=== PATIENT | female | born 1985 | race Hispanic/Latino ===

== ENCOUNTER 2017-01-02 12:22 | Emergency (ER) | payer MEDICAID ==
[~2017-01-02] VITALS: Ht 165.1 cm; Wt 100.0 kg
[~2017-01-02 12:22] MED LIST: AMOXICILLIN875 MG PO; CLINICAL NUTRIENTS P PO; GENTASOL0.3 % OS; HYDROXYZ HCL25 MG PO; NO; NO MEDS; SOLU-MEDROL125 MG IM
[2017-01-02] MEDS ORDERED: PHENTERMINE H37.5 MG PO (12:29)
[2017-01-02] MEDS ORDERED: ACULAR LS0.4 % OU (13:28)
[2017-01-02 13:40] VITALS: BP 152/96
== END 2017-01-02 13:51 | disposition home or self-care (01) | DRG 125 ==
LOC: ED 12:22
DX: H57.8 Other specified disorders of eye and adnexa (principal)

== ENCOUNTER 2018-02-25 11:12 | Emergency (ER) | payer MEDICAID ==
[~2018-02-25] VITALS: Ht 165.1 cm; Wt 111.0 kg
[~2018-02-25 11:12] MED LIST changes: +ACULAR LS0.4 % OU; +PHENTERMINE H37.5 MG PO
[2018-02-25] MEDS ORDERED: FLEXERIL5 M1 PO (12:59)
[2018-02-25] MEDS ORDERED: TRAMADOL HCL50 MG PO (12:59)
[2018-02-25] MEDS ORDERED: PREDNISONE10 MG PO (12:59)
[2018-02-25 13:05] VITALS: BP 134/66
== END 2018-02-25 13:05 | disposition home or self-care (01) ==
LOC: ED 11:12
DX: M54.41 Lumbago with sciatica, right side (principal)